=== PATIENT | male | born 1960 | race Caucasian/White ===

== ENCOUNTER → 2021-05-26 | Day surgery (SDC) | payer OTHER ==
[~2021-05-26] VITALS: Ht 178 cm; Wt 90.3 kg
[~2021-05-26] MED LIST: AMIODARONE HCL200 MG PO; ASPIR-LOW81 MG PO; COREG25 MG PO; COZAAR100 MG PO; ISOSORBIDE DINI20 M1 PO; LASIX20 MG PO; LIPITOR80 MG PO; NITROQUIK SL0.4 MG SL; NORVASC5 MG PO; OMEPRAZOLE40 MG PO; PERCOCET 5-3251 EACH PO; VALSARTAN80 MG PO; XARELTO20 MG PO; XIIDRA1 EACH OU
== END | disposition home or self-care (01) ==
LOC: FAS 08:29
DX: D12.6 Benign neoplasm of colon, unspecified (principal); K57.30 Diverticulosis of large intestine without perforation or abscess without bleeding; K29.60 Other gastritis without bleeding; D50.0 Iron deficiency anemia secondary to blood loss (chronic); I25.2 Old myocardial infarction; I48.91 Unspecified atrial fibrillation; I13.0 Hypertensive heart and chronic kidney disease with heart failure and stage 1 through stage 4 chronic kidney disease, or unspecified chronic kidney disease; I50.9 Heart failure, unspecified; N18.9 Chronic kidney disease, unspecified; E78.00 Pure hypercholesterolemia, unspecified; M19.90 Unspecified osteoarthritis, unspecified site; Z88.6 Allergy status to analgesic agent; Z95.1 Presence of aortocoronary bypass graft; Z79.01 Long term (current) use of anticoagulants; Z95.810 Presence of automatic (implantable) cardiac defibrillator; Z88.0 Allergy status to penicillin
CPT/HCPCS: J0690; J1610; J1956; J2704; J7120